=== PATIENT | female | born 1990 ===

== ENCOUNTER 2021-12-29 20:59 | Emergency (ER) | payer SELFPAY ==
[2021-12-30] MEDS ORDERED: TETANUS,DIPH,PERTUSS(ACELL) VACCINE 0.5 ML SYRINGE IM ONE (05:44)
[2021-12-30] MEDS ORDERED: LIDOCAINE (2%) 20 MG/1 ML VIAL 20 ML MDV INFILTRATI STA (05:44)
[2021-12-30] MEDS ORDERED: HYDROcodone/ACETAMINOPHEN 5-325 MG TAB PO STA (05:44)
--- NOTE | 2021-12-30 06:37 | Emergency Department Report ---
ED Laceration HPI - HPI Chief Complaint: Wound/Laceration Stated Complaint: LEFT HAND LAC Occurred When: Today Location: Upper Extremity (Right hand palm between the first and second phalange) Severity: mild, moderate Tetanus Status: Unknown Laceration Symptoms: Yes Pain, No Foreign Body Sensation, No Numbness, No Weakness Other History: Accidentally cut hand with sharp object prior to arrival to the emergency department presents seeking closure of laceration ED Review of Systems ROS: Stated complaint: LEFT HAND LAC Other details as noted in HPI Comment: All other systems reviewed and negative Laceration Physical Exam - Exam General: Vital signs noted. No distress. Alert and acting appropriately. Wound Length (cm): 2 Laceration Location: Upper Extremity Full Body Front + Back: 1 - Laceration to this region palmar aspect with 2 cm Laceration Exam: Yes Normal Distal CMS, No Foreign Body, No Exposed Tendon, Vess el, or Nerve, No Tendon Injury ED Course Vital Signs 12/29/21 21:18 Temperature 98.2 F Pulse Rate 73 Respiratory 16 Rate Blood Pressure 99/61 O2 Sat by Pulse 96 Oximetry - Laceration /Wound Repair Right Hand Wound Length (cm): 2 Wound's Depth, Shape: linear Wound Explored: clean Irrigated w/ Saline (ccs): 30 Betadine Prep?: Yes Anesthesia: 1% Lidocaine Volume Anesthetic (ccs): 2 Wound Repaired With: sutures Suture Size/Type: 4:0 Number of Sutures: 3 Progress: Vicryl sutures were used no return needed for removal Critical care attestation.: If time is entered above; I have spent that time in minutes in the direct care of this critically ill patient, excluding procedure time. ED Disposition Clinical Impression: Hand laceration Disposition: 01 HOME / SELF CARE / HOMELESS Is pt being admited?: No Does the pt Need Aspirin: No Condition: Stable Instructions: Wound Infection, Laceration Care, Adult Additional Instructions: 31-year-old female presents emerged department for laceration. Laceration was repaired with 3 sutures simple interrupted fashion absorbable sutures stitches. You should not need to return to remove the sutures. Please keep the wound clean with antibacterial soap and water and use an [id number] medication for the pain. You also may apply ice to help soothe in the discomfort as well Referrals: PRIMARY CARE, [Primary Care Provider] - 3-5 Days
[2021-12-30 06:48] VITALS: BP 139/81
== END 2021-12-30 06:47 | disposition home or self-care (01) ==
LOC: ED 20:59
DX: S61.411A Laceration without foreign body of right hand, initial encounter (principal); W25.XXXA Contact with sharp glass, initial encounter; Y93.89 Activity, other specified; Y92.89 Other specified places as the place of occurrence of the external cause; Y99.8 Other external cause status
CPT/HCPCS: 99282